=== PATIENT | male | born 1955 | race Caucasian/White ===

== ENCOUNTER 2018-05-21 08:44 | Outpatient (CLI) | payer MEDICARE ==
[~2018-05-21] VITALS: Ht 172.7 cm; Wt 63.5 kg
[2018-05-21] MEDS ORDERED: albuterol 2.5 MG/3 ML nebule NEB PRN (09:20)
== END 2018-05-21 23:59 | disposition home or self-care (01) ==
LOC: RT 08:44
PROVIDERS: ATTEND Family Medicine
DX: R06.02 Shortness of breath (principal); F17.210 Nicotine dependence, cigarettes, uncomplicated
CPT/HCPCS: 94060; 94727; 94729; 94760

== ENCOUNTER 2019-09-23 04:25 | Outpatient (CLI) | payer MEDICARE | END 2019-09-23 23:59 | disposition home or self-care (01) | LOC: RT 04:25 | PROVIDERS: ATTEND Family Medicine | DX: J44.9 Chronic obstructive pulmonary disease, unspecified (principal) | CPT/HCPCS: 94618 ==